=== PATIENT | female | born 1995 | race Caucasian/White ===

== ENCOUNTER 2016-11-04 00:02 | Emergency (ER) | payer MEDICAID ==
[2016-11-04 00:10] VITALS: BP 147/88; PULSE 67; RESP 16; TEMP 98.1; O2SAT 98
[2016-11-04] MEDS ORDERED: PROMETHAZINE HCL 25 MG TAB PO ONE (00:41)
[2016-11-04] MEDS ORDERED: KETOROLAC 30 MG/1 ML SDV IM ONE (00:41)
--- NOTE | 2016-11-04 01:21 | EDPHY ---
H & P Stated Complaint: c/o generalized abd pain x 1 month, n/v x 1 week Time Seen by Provider: 11/04/16 00:22 HPI/ROS: HPI The patient presents with abdominal pain associated with nausea and vomiting. The patient has had about 1 year of abdominal pain and has been evaluated by her primary care doctor, [facility] and center lead consultant. She has had an endoscopy and colonoscopy which is unremarkable. She is currently undergoing a workup for endometriosis she tells me. She is not on any medication for pain currently though does have Zofran at home for the nausea that she has. Pain has been associated with nausea, however over the last 1 week she is having occasional vomiting, up to 1 time a day. She thinks this is because her pain is worse. She does not have any associated symptoms besides nausea and vomiting. She has been to the emergency room several times for this, at [facility] and at [facility]. REVIEW OF SYSTEMS Constitutional: No fever, no chills. Eyes: No discharge. ENT: No sore throat. Cardiovascular: No chest pain, no palpitations. Respiratory: No cough, no shortness of breath. Gastrointestinal: See HPI Genitourinary: No hematuria. Musculoskeletal: No back pain. Skin: No rashes. Neurological: No headache. PMHx: Abdominal pain for the last 1 year Soc Hx: PHYSICAL General Appearance: Alert, no distress Eyes: Pupils equal and round no pallor or injection ENT, Mouth: Mucous membranes moist Respiratory: There are no retractions, lungs are clear to auscultation Cardiovascular: Regular rate and rhythm Gastrointestinal: Abdomen is soft and non-tender, no masses, bowel sounds normal Neurological: A&O, moves all extremities Skin: Warm and dry, no rashes Musculoskeletal: Neck is supple non tender Extremities: symmetrical, full range of motion Psychiatric: Patient is oriented X 3, there is no agitation Source: Patient - Medical/Surgical History Hx Asthma: No Hx Chronic Respiratory Disease: No Hx Diabetes: No Hx Cardiac Disease: No Hx Renal Disease: No Hx Cirrhosis: No Hx Alcoholism: No Hx HIV/AIDS: No Hx Splenectomy or Spleen Trauma: No Other PMH: bipolar, ptsd, anxiety, insomnia - Social History Smoking Status: Former smoker Constitutional: Initial Vital Signs Temperature (C) 36.7 C 11/04/16 00:06 Heart Rate 67 11/04/16 00:06 Respiratory Rate 16 11/04/16 00:06 Blood Pressure 147/88 H 11/04/16 00:06 O2 Sat (%) 98 11/04/16 00:06 O2 Delivery Mode Room Air Allergies/Adverse Reactions: adhesive Allergy (Verified 11/04/16 00:11) oxycodone Allergy (Verified 11/04/16 00:11) Penicillins Allergy (Verified 11/04/16 00:11) Sulfa (Sulfonamide Antibiotics) Allergy (Verified 11/04/16 00:11) Home Medications: Medication Instructions Recorded Metronidazole 11/04/16 Promethazine HCl [Phenergan 25mg 25 mg PO Q12H PRN #15 tab 11/04/16 (*)] Medical Decision Making Differential Diagnosis: This is a 21-year-old female with 1 year of abdominal pain of uncertain etiology , currently being evaluated for endometriosis who presents from home with continued abdominal pain now associated with increasing nausea and vomiting. She has Zofran at home but she feels this is not helping. She asked for morphine or Dilaudid as these are the only things that help her pain. I have explained to her that opiate pain medications can cause increased nausea and vomiting and I do not think these would be helpful. I have offered her Toradol IM and Phenergan. She would like to try this. On exam, she does not have any tenderness. She appears well hydrated. She has no active vomiting here. I doubt any serious acute intra-abdominal pathology such as SBO, appendicitis, ovarian torsion. The cause of her pain is uncertain to me, however I doubt that there is anything acute currently. In the emergency room, she was given Toradol and Reglan and then left from the emergency room. She told the nurse that we were not doing anything to treat her pain and was upset. She left before I could provide her with a prescription for Phenergan. - Data Points Medications Given: Discontinued Medications Ketorolac Tromethamine (Toradol) 30 mg IM EDNOW ONE Stop: 11/04/16 00:42 Last Admin: 11/04/16 00:48 Dose: 30 mg Promethazine HCl (Phenergan) 12.5 mg PO ONCE ONE Stop: 11/04/16 00:42 Last Admin: 11/04/16 00:48 Dose: 12.5 mg Departure - Departure Disposition: Against Medical Advice Clinical Impression: Abdominal pain Qualifiers: Abdominal location: generalized Qualified Code(s): R10.84 - Generalized abdominal pain Vomiting Qualifiers: Vomiting type: unspecified Vomiting Intractability: non-intractable Nausea presence: with nausea Qualified Code(s): R11.2 - Nausea with vomiting, unspecified Condition: Good Instructions: Acute Nausea and Vomiting (ED) Additional Instructions: Please make sure to eat small frequent meals. You can take the Phenergan as needed for vomiting. Referrals: Radha Adan MD [Primary Care Provider] - As per Instructions Prescriptions: Promethazine HCl [Phenergan 25mg (*)] 25 mg PO Q12H PRN #15 tab PRN Reason: vomiting
== END 2016-11-04 01:22 | disposition left against medical advice (07) ==
DX: R11.2 Nausea with vomiting, unspecified (principal); R10.84 Generalized abdominal pain; Z87.891 Personal history of nicotine dependence
CPT/HCPCS: J1885

== ENCOUNTER 2016-11-24 08:38 | Day surgery (SDC) | payer MEDICAID ==
--- NOTE | 2016-11-23 16:42 | GHP ---
[f rep st] HISTORY AND PHYSICAL DATE OF ADMISSION: 11/24/2016 ADMITTING DIAGNOSIS: Chronic Abdominopelvic pain. HISTORY OF PRESENT ILLNESS: Patient is a 21-year-old, 4, para 0-0-4-0, who presents to the office with complaints of chronic, diffuse abdominopelvic pain for 2 years duration. States pain is constant, dull, and at times sharp with radiation to back and hips. Patient has had a complete workup with GI in [place]. She had both an endoscopy and colonoscopy with no cause of her pain. Recently over the last 2 weeks she has developed lower pelvic pain, sharp and stabbing with radiation to low back. No relief with Advil or Tylenol. She does get relief with morphine. No exacerbating factors noted. Patient was seen in the ED multiple times secondary to this pain. She has had CAT scans, and a pelvic ultrasound most recently October 12, 2016 that was normal. No ovarian cysts or other pathology noted. Patient saw the nurse practitioner in my office , and was given NuvaRing to see if it would help with her pelvic pain. She just started this and is currently on week 4. She removed the ring and has not had a menses yet. Previously had an Implanon in place, but had irregular bleeding with that. She denies any urinary or bowel complaints at this time. She does have a history of dysmenorrhea and menorrhagia. She does have a family history of endometriosis and desires surgery at this time to find out the exact cause of her pain since it has been so long PAST OBSTETRIC HISTORY: Patient has had SABs x 4, none requiring D&C. GYNECOLOGIC HISTORY: Age of menarche is9. Cycles are usually regular, every 28 days. She usually bleeds 4 to 5 days. Patient denies history of abnormal Pap smears and is due for a Pap smear. She also denies a history of exposure to any sexually transmitted diseases. PAST MEDICAL HISTORY: Asthma, depression, anxiety, mental illness-bipolar, currently not on any medications. PAST SURGICAL HISTORY: [place] teeth extraction. CURRENT MEDICATIONS: Antacids. ALLERGIES: Penicillin, sulfa, Percocet, Neosporin. SOCIAL HISTORY: Patient is and lives with her . She denies any alcohol, tobacco or illicit drug use. She works in [employer]. FAMILY HISTORY: Unremarkable. REVIEW OF SYSTEMS: A 10-point review of systems is negative, except for pertinent positives noted in HPI. PHYSICAL EXAMINATION: VITAL SIGNS: On admission patient is afebrile, vital signs are normal. GENERAL: A well-nourished, well-developed female, alert and oriented x3, in no apparent distress. CARDIOVASCULAR: Regular rate and rhythm without murmur. LUNGS: Clear to auscultation bilaterally. ABDOMEN: Obese, soft, nondistended, diffuse tenderness, mild. No rebound, no guarding. PELVIC : Bimanual exam is limited by body habitus but reveals a normal size uterus that is mobile, nontender, and no adnexal masses. Nonpalpable ovaries. LABORATORY DATA: Labs are pending. ASSESSMENT: Pt is a 21-year-old, 4, para 0-0-4-0 with chronic abdominopelvic pain. PLAN: 1. We discussed surgery, diagnostic laparoscopy, its limitations, n.p.o. status , preoperative preparation, and postoperative recovery. 2. We discussed that we may or may not find the cause for her pain, and she understands and still wants to proceed with surgery. 3. Pain may be secondary to endometriosis, and again we discussed it being a surgical diagnosis in conjunction with hormonal treatment. She is interested in Mirena IUD, and this is to be placed 2 weeks postoperatively. 4. Surgical consents obtained. Risks, benefits and alternatives reviewed with the patient including but not limited to bleeding, infection, damage to surrounding organs. Patient understands all risks at this time, and wants to proceed with surgery. 5. 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 She is allergic to penicillin, we will treat with clindamycin. 6. Sequential compression devices for deep venous thrombosis prophylaxis. 7. Discussed prescriptions for pain control at home including [place], Ibuprofen , as well as ZofranMELANI. /[id number]/MODL MTDD
[2016-11-24] MEDS ORDERED: LIDOCAINE 1% 2 ML INJ ONE (09:05)
[2016-11-24] MEDS ORDERED: LIDOCAINE 1% 5 ML SDV ID PRN (09:18)
[2016-11-24] MEDS ORDERED: LR 1,000 ML IV ONE (09:18)
[2016-11-24] MEDS ORDERED: CLINDAMYCIN 600 MG/DEXTROSE 50 ML IV ONE (09:30)
[2016-11-24] MEDS ORDERED: SILVER NITRATE APPLICATOR 1 APPL TP ONE (10:04)
[2016-11-24] MEDS ORDERED: BUPIVACAINE 0.5% 30 ML SDV ONE (10:04)
[2016-11-24] MEDS ORDERED: MIDAZOLAM 2 MG/2 ML VIAL ONE (10:49)
[2016-11-24] MEDS ORDERED: fentaNYL 100 MCG/2 ML INJ ONE ×3 (10:53→12:23)
[2016-11-24] MEDS ORDERED: PROPOFOL 200 MG/20 ML VIAL ONE (10:53)
[2016-11-24] MEDS ORDERED: LIDOCAINE 2% 100 MG/5 ML SYR ONE (11:29)
[2016-11-24] MEDS ORDERED: ROCURONIUM 50 MG/5 ML VIAL ONE (11:29)
[2016-11-24] MEDS ORDERED: DEXAMETHASONE 4 MG/ML VIAL ONE (11:29)
[2016-11-24] MEDS ORDERED: ONDANSETRON 4 MG/2 ML VIAL ONE (11:29)
[2016-11-24] MEDS ORDERED: HYDROmorphONE/DILAUDID 2 MG/ML INJ ONE (11:42)
[2016-11-24] MEDS ORDERED: KETOROLAC 30 MG/1 ML SDV ONE (12:24)
[2016-11-24] MEDS ORDERED: HYDROmorphONE/DILAUDID 1 MG/ML SYR ONE ×2 (12:37→13:30)
[2016-11-24] MEDS ORDERED: HYDROCODONE/APAP 5/325 TAB ONE (13:28)
[2016-11-24] MEDS ORDERED: PROMETHAZINE HCL 25 MG/ML INJ ONE (14:04)
--- NOTE | 2016-11-24 18:01 | GOP ---
[f rep st] OPERATIVE REPORT DATE OF OPERATION: 11/24/2016 SURGEON: Patsy Spivey DO HEATING ELEMENT BUILDER: Rebecca Faustin DO ANESTHESIA: General endotracheal. PREOPERATIVE DIAGNOSIS: Chronic abdominal/pelvic pain. POSTOPERATIVE DIAGNOSIS: 1. Chronic abdominal/pelvic pain. 2. Endometriosis. PROCEDURE PERFORMED: 1. Diagnostic laparoscopy. 2. Fulguration of endometriosis. FINDINGS: Grossly normal-appearing uterus, tubes, and ovaries bilaterally. Upper abdomen grossly normal-appearing as well. Appendix normal appearing. There were endometrial implants noted on the right side of the posterior cul-de- sac. No specimens. ESTIMATED BLOOD LOSS: 5 cc. INDICATIONS: The patient is a 21-year-old, 4, para 0-0-4-0 who presents with 2 years' duration of abdominopelvic pain. She had a negative workup with GI. Both an endoscopy/colonoscopy was done and normal. Most recently, a CAT scan and pelvic ultrasound was done and negative as well. Patient has a family history of endometriosis and has a history herself of dysmenorrhea and menorrhagia. She would like to see if her pain is caused by endometriosis. We discussed the risks, benefits, alternatives of the surgery. Patient understands all risks of surgery, consents to surgery and wants to proceed at this time. DESCRIPTION OF PROCEDURE: Patient was taken to the operating room where general anesthesia was obtained without difficulty. Patient was placed in dorsal lithotomy position, prepped and draped in the usual sterile manner. On bimanual exam, the uterus was normal size, anteverted, nontender and normal adnexa. Exam limited by body habitus. Rodarte catheter was placed in her bladder. Open-sided speculum was then placed in the vagina. Anterior lip of the cervix was grasped with a single-tooth tenaculum. The uterus was then sounded to 7 cm. An acorn manipulator was advanced to the uterus and used as a means to manipulate the uterus. The speculum was then removed. We turned our attention to the patient's abdomen. Infraumbilical area was injected with 0.5% plain Marcaine. Then a 5 mm infraumbilical skin incision was made with a knife. The long Veress needle was inserted very carefully while tenting up the abdominal wall. Aspiration was negative. Abdomen was insufflated with carbon dioxide. Pneumoperitoneum was obtained. After adequate insufflation, the Veress needle was then removed. A long 5 mm trocar was introduced through the infraumbilical incision into the abdominal cavity directly with the laparoscope. Patient was placed in Trendelenburg position. There was adequate visualization of the pelvic structures at this time. After injection of more local, another 5 mm skin incision was made in the left lower quadrant, as well as the right lower quadrant. Atraumatic trocars were placed. Pelvic findings noted above. At this time using the hot scissors, the 2 endometrial implants that were noted on the right side of the cul-de-sac, were cauterized multiple times. Hemostasis was noted. The pelvis was irrigated with normal saline and again hemostasis was noted. Laparoscope was then removed, as well as all the instruments. All gas was allowed to escape from the abdomen. The 5 mm skin incisions were closed with glue. We then turned our attention down below. [place] was then removed, as well as other instruments. There was noted to be no active bleeding. Patient tolerated procedure well. No complications. All instrument, sponge and needle counts were correct x2. Patient was then awakened, taken out of dorsal lithotomy position, taken to recovery room in stable condition. INTRAVENOUS FLUIDS: 700 cc LR. URINE OUTPUT: 125 cc of clear urine at the end of the procedure. /[id number]/MODL MTDD
== END 2016-11-24 16:08 | disposition home or self-care (01) ==
LOC: FSGY 08:38
PROVIDERS: ATTEND Obstetrics & Gynecology
PROC: 0U5F4ZZ Destruction of Cul-de-sac, Percutaneous Endoscopic Approach (ICD-10-PCS; principal; 2016-11-24 10:30)
DX: N80.3 Endometriosis of pelvic peritoneum (principal); F41.8 Other specified anxiety disorders; J45.909 Unspecified asthma, uncomplicated; Z88.0 Allergy status to penicillin
CPT/HCPCS: J1100; J1170; J1885; J2001; J2250; J2405; J2550; J2704; J3010

== ENCOUNTER 2018-08-16 22:44 | Emergency (ER) | payer MEDICAID ==
[2018-08-16] MEDS ORDERED: GABAPENTIN 300 MG CAP PO ONE (23:11)
[2018-08-16] MEDS ORDERED: KETOROLAC 15 MG/1 ML SDV IVP ONE (23:11)
[2018-08-16] MEDS ORDERED: DEXAMETHASONE 4 MG/ML VIAL IVP ONE (23:11)
[2018-08-16] MEDS ORDERED: DIAZEPAM 5 MG/ML 1 ML SYR IVP ONE (23:11)
--- NOTE | 2018-08-16 23:11 | EDPHY ---
H & P Stated Complaint: back pain Time Seen by Provider: 08/16/18 23:03 HPI/ROS: HPI: This is a 22-year-old female who presents with Chief Complaint: Back pain Location: Lower back Quality: Pain Duration: 8 days Signs and Symptoms: No bleeding, + bilateral radiation, no numbness, no weakness, no tingling, no incontinence, no decreased range of motion, no swelling, + pain, no fever Timing: Gradual onset Severity: Moderate Context: Patient reports that approximately 8 days ago she was lifting 100 lb car [place] and felt a pulling sensation in her lower back. She reports that she has done this multiple times in the past without injury. She reports that she started to experience bilateral lower back pain with radiation down into her bilateral hips. She was seen outpatient and a lumbar sacral x-ray ordered that was "unremarkable" per the patient. She completed a Medrol Dosepak and was given Flexeril and Percocet. She completed the Medrol Dosepak approximately 2 days ago. She reports no relief in her discomfort. She has Medicaid in his unable to get a referral to Neurosurgery from her primary care provider. She is asking for pain control and Neurosurgery referral to obtain an MRI outpatient. Denies change in bowel or bladder habits, dysuria, fever, abdominal pain. She is ambulatory without difficulty. She did call out of work today. Modifying Factors: See above Comment: ROS: A comprehensive 10 system review of systems is otherwise negative aside from elements mentioned in the history of present illness. MEDICAL/SURGICAL/SOCIAL HISTORY: Medical history: Bipolar disorder, PTSD, anxiety, insomnia. LMP 1-2 weeks ago. Surgical history: Denies Social history: Single. Employed. Former smoker. CONSTITUTIONAL: Obese, young adult white female, talkative and no distress, awake and alert HEENT: Atraumatic and normocephalic. NECK: supple, no midline tenderness Cardiovascular: Normal S1/S2, regular rate, regular rhythm, without murmur rub or gallop. PULMONARY/CHEST: Symmetrical and nontender. Clear to auscultation bilaterally. Good air movement. No accessory muscle usage. ABDOMEN: Soft, nondistended, nontender. PELVIC: no pain with rocking; bilateral hips flexion 125 degrees, extension 30 degrees, with no pain internal rotation and no pain external rotation. BACK: No midline tenderness, mild bilateral lower lumbar paraspinous muscle reproducible tenderness; no paraspinous spasm, deep tendon reflexes 2/2, mild pain with straight leg raise right greater than left, No foot drop. Achilles reflexes are equal bilaterally. Able to walk on heels and toes without difficulty. EXTREMITIES: 2/2 pulses, strength 5/5, DIP/PIP/MCP flexion/extension intact with good light touch sensation. no deformities, no clubbing, no cyanosis or edema. NEUROLOGICAL: no focal neuro deficits. GCS 15. Light touch sensation intact. SKIN: Warm and dry, no erythema. no rash. Good capillary refill. Source: Patient Exam Limitations: No limitations - Personal History LMP (Females 10-55): 8-14 Days Ago Current Tetanus Diphtheria and Acellular Pertussis (TDAP): Yes - Medical/Surgical History Hx Asthma: No Hx Chronic Respiratory Disease: No Hx Diabetes: No Hx Cardiac Disease: No Hx Renal Disease: No Hx Cirrhosis: No Hx Alcoholism: No Hx HIV/AIDS: No Hx Splenectomy or Spleen Trauma: No Other PMH: bipolar, ptsd, anxiety, insomnia - Social History Smoking Status: Former smoker Constitutional: Initial Vital Signs Temperature (C) 37 C 08/16/18 22:47 Heart Rate 80 08/16/18 22:47 Respiratory Rate 16 08/16/18 22:47 Blood Pressure 123/78 H 08/16/18 22:47 O2 Sat (%) 97 08/16/18 22:47 O2 Delivery Mode Room Air Allergies/Adverse Reactions: adhesive Allergy (Verified 08/16/18 22:46) Other-Enter Comments bacitracin [From Neosporin ([id number])] Allergy (Verified 08/16/18 22:46) latex Allergy (Verified 08/16/18 22:47) neomycin [From Neosporin ([id number])] Allergy (Verified 08/16/18 22:46) oxycodone Allergy (Verified 08/16/18 22:46) Dyspnea Penicillins Allergy (Verified 08/16/18 22:46) Dyspnea polymyxin B [From Neosporin ([id number])] Allergy (Verified 08/16/18 22:46) Sulfa (Sulfonamide Antibiotics) Allergy (Verified 08/16/18 22:46) Dyspnea Home Medications: Medication Instructions Recorded NK [No Known Home Meds] 08/16/18 Medical Decision Making ED Course/Re-evaluation: Vital signs reviewed and stable upon arrival. No neurological deficits to warrant emergent MRI in the emergency room. IV access and medications ordered Given IV dexamethasone 8 mg, IV Toradol 15 mg, IV Valium 5 mg, IV Zofran 4 mg, IV Dilaudid 0.5 mg and p.o. Gabapentin 600 mg 0027: Reassessed patient who reports 75% improvement in her symptoms. Patient reports that she has Vicodin and Valium at home for pain control. Patient feels comfortable being discharged home. Work note provided and Neurosurgery referral. Walking back and forth to the bathroom without any difficulty. No signs of neurovascular compromise/tenting of skin/compartment syndrome/ extremities and joints examined above and below area of concern and are neurovascularly intact/cauda equina syndrome. This patient was seen under the supervision of my secondary supervising physician. I evaluated care for this patient attending. Discussed this patient with Dr. Carey Differential Diagnosis: Back pain including but not limited to muscular pain, herniated disc, spine fracture, intra-abdominal causes and urinary tract infection. - Data Points Medications Given: Discontinued Medications Dexamethasone (Decadron Injection) 8 mg IVP EDNOW ONE Stop: 08/16/18 23:12 Last Admin: 08/16/18 23:25 Dose: 8 mg Diazepam (Valium) 5 mg IVP EDNOW ONE Stop: 08/16/18 23:12 Last Admin: 08/16/18 23:25 Dose: 5 mg Gabapentin (Neurontin) 600 mg PO EDNOW ONE Stop: 08/16/18 23:12 Last Admin: 08/16/18 23:25 Dose: 600 mg Hydromorphone HCl (Dilaudid) 0.5 mg IVP EDNOW ONE Stop: 08/16/18 23:13 Last Admin: 08/16/18 23:26 Dose: 0.5 mg Ketorolac Tromethamine (Toradol) 15 mg IVP EDNOW ONE Stop: 08/16/18 23:12 Last Admin: 08/16/18 23:25 Dose: 15 mg Ondansetron HCl (Zofran) 4 mg IVP EDNOW ONE Stop: 08/16/18 23:22 Last Admin: 08/16/18 23:24 Dose: 4 mg Departure - Departure Disposition: Home, Routine, Self-Care Clinical Impression: Lumbosacral strain Qualifiers: Encounter type: initial encounter Qualified Code(s): S39.012A - Strain of muscle, fascia and tendon of lower back, initial encounter Condition: Good Instructions: Low Back Strain (ED) Additional Instructions: Please refrain from lifting more than 10 lb. Take Vicodin every 4-6 hours as needed for pain. Take Valium every 8 hr as needed for muscle spasms. Apply moist heat for 30 minutes at a time; 2-3 times per day for the next 1-2 days. Follow-up with Neurosurgery in the next several days to determine if MRI lumbar spine needs to be ordered. Referrals: Radha Adan MD [Primary Care Provider] - As per Instructions Chloe Blackman DO [Doctor of Osteopathy] - As per Instructions Stand Alone Forms: Work Excuse
[2018-08-16] MEDS ORDERED: HYDROmorphONE/DILAUDID 2 MG/ML INJ IVP ONE (23:12)
[2018-08-16] MEDS ORDERED: ONDANSETRON 4 MG/2 ML VIAL IVP ONE (23:21)
[2018-08-17 00:10] VITALS: BP 142/81
== END 2018-08-17 00:39 | disposition home or self-care (01) ==
DX: S39.012A Strain of muscle, fascia and tendon of lower back, initial encounter (principal); X50.0XXA Overexertion from strenuous movement or load, initial encounter; F31.9 Bipolar disorder, unspecified; F43.10 Post-traumatic stress disorder, unspecified; F41.9 Anxiety disorder, unspecified; G47.00 Insomnia, unspecified; Z87.891 Personal history of nicotine dependence; Z88.0 Allergy status to penicillin; Z88.2 Allergy status to sulfonamides
CPT/HCPCS: 96374; J1100; J1170; J1885; J2405; J3360